=== PATIENT | female | born 2000 | race African-American/Black ===

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

== ENCOUNTER → 2020-02-07 | Emergency (ER) | payer MEDICAID, BC | LOC: ER 00:37 | DX: Z53.21 Procedure and treatment not carried out due to patient leaving prior to being seen by health care provider (principal); R11.0 Nausea; R10.9 Unspecified abdominal pain; R19.7 Diarrhea, unspecified ==

== ENCOUNTER 2020-05-25 23:40 | Emergency (ER) | payer MEDICAID, BC ==
[2020-05-26 00:32] VITALS: BP 124/65
== END 2020-05-26 00:35 | disposition left against medical advice (07) ==
LOC: ER 23:40
DX: Z53.21 Procedure and treatment not carried out due to patient leaving prior to being seen by health care provider (principal)